=== PATIENT | female | born 1960 | race Caucasian/White ===

== ENCOUNTER → 2019-01-29 11:12 | Outpatient (CLI) | payer SELFPAY ==
--- NOTE | 2019-01-29 11:17 | RAD_ITS ---
HISTORY: PPainRAD-EXT/JT EXAM: 6 images of the left Knee COMPARISON: None FINDINGS: # of images incl. paperwork: 6 There is minimal joint space narrowing. A few osteophytes are present. A tiny left knee effusion is present. Bony alignment is normal. Cortices are intact. Venous prominence medial to the legs suggests central venous reflux disease. RAD/Knee 4 or More Views IMPRESSION: Mild arthritis to the left knee. Prominent varices medial and posterior to the left knee suggestive of central venous reflux disease and valvular incompetence. at [id number] Reported and signed by: Albaro Walker MD Electronically Signed: Albaro Walker MD at 23:21 EDT Tel , Service support ,
== END ==
PROVIDERS: Referring Provider Orthopaedic Surgery; Visit Provider Orthopaedic Surgery
DX: M25.562 Pain in left knee (principal)
CPT/HCPCS: 73564